=== PATIENT | female | born 1975 | race American Indian/Alaskan Native ===

== ENCOUNTER 2017-05-12 01:07 | Emergency (ER) | payer MEDICAID ==
--- NOTE | 2017-05-12 02:39 | C.PDOC ---
History Of Present Illness 41 year old female presents to the ED with complaints of lower back pain after slipping and falling on the last two steps while going down the steps yesterday. Patient notes a history of a back condition and denies any LOC, weakness, or numbness. Time Seen by Provider: 05/12/17 01:43 Chief Complaint (Nursing): Back Pain History Per: Patient History/Exam Limitations: no limitations Onset/Duration Of Symptoms: Days (1 day ) Current Symptoms Are (Timing): Still Present Quality Of Discomfort: "Pain" Severity: Moderate Previous Symptoms: Chronic Pain Associated Symptoms: None. denies: Incontinence, New Weakness, New Numbness Exacerbating Factor(s): Turning, Movement Recent travel outside of the [place]: No Past Medical History Reviewed: Historical Data, Nursing Documentation, Vital Signs Vital Signs: Last Vital Signs Temp 99 F 05/12/17 02:50 Pulse 84 05/12/17 02:50 Resp 14 05/12/17 02:50 BP 110/70 05/12/17 02:50 Pulse Ox 97 05/12/17 05:00 - Medical History PMH: Back Problems Family History: States: Unknown Family Hx - Social History Hx Alcohol Use: No Hx Substance Use: No - Immunization History Hx Tetanus Toxoid Vaccination: No Hx Influenza Vaccination: No Hx Pneumococcal Vaccination: No Review Of Systems Constitutional: Negative for: Fever, Chills Cardiovascular: Negative for: Chest Pain Respiratory: Negative for: Shortness of Breath Gastrointestinal: Negative for: Nausea, Vomiting Musculoskeletal: Positive for: Back Pain Neurological: Negative for: Weakness, Numbness Physical Exam - Physical Exam Appears: Non-toxic, No Acute Distress Skin: Warm, Dry Head: Atraumatic Eye(s): bilateral: Normal Inspection, PERRL, EOMI Oral Mucosa: Moist Neck: Supple Chest: Symmetrical, No Deformity Cardiovascular: Rhythm Regular Respiratory: Normal Breath Sounds, No Rhonchi, No Wheezing Back: No Vertebral Tenderness, Paraspinal Tenderness (minimal paralumbar tenderness ) Extremity: Normal ROM, No Tenderness Neurological/Psych: Oriented x3, Normal Speech, Normal Cognition, Normal Cranial Nerves, Normal Motor, Normal Sensation Gait: Steady ED Course And Treatment O2 Sat by Pulse Oximetry: 97 (room air ) Progress Note: Patient was given flexeril and motrin. Reassessment Condition: Improved Disposition Counseled Patient/Family Regarding: Diagnosis, Need For Followup, Rx Given - Disposition Referrals: [facility] [Outside] Disposition: HOME/ ROUTINE Disposition Time: 02:32 Condition: STABLE Additional Instructions: Please follow up in clinic or with your doctor Take meds as directed Return to ER if worse Prescriptions: Cyclobenzaprine [Cyclobenzaprine HCl] 10 mg PO HS #10 tab Ibuprofen [Motrin] 600 mg PO Q6H #30 tab Instructions: Back Pain (ED) Forms: [employer] (Maltese) - Clinical Impression Clinical Impression: Low back pain, Contusion of back - Scribe Statement The provider has reviewed the documentation as recorded by the Scribe Rivka Hardy All medical record entries made by the Tedibe were at my direction and personally dictated by me. I have reviewed the chart and agree that the record accurately reflects my personal performance of the history, physical exam, medical decision making, and the department course for this patient. I have also personally directed, reviewed, and agree with the discharge instructions and disposition.
[2017-05-12 02:51] VITALS: BP 110/70; PULSE 84; RESP 14; TEMP 99
[2017-05-12 04:19] VITALS: O2SAT 97
== END 2017-05-12 02:54 | disposition home or self-care (01) ==
LOC: C.ER 01:07
DX: S30.0XXA Contusion of lower back and pelvis, initial encounter (principal); W10.9XXA Fall (on) (from) unspecified stairs and steps, initial encounter; Y92.008 Other place in unspecified non-institutional (private) residence as the place of occurrence of the external cause